=== PATIENT | female | born 1990 | race Caucasian/White ===

== ENCOUNTER 2019-04-21 05:37 | Inpatient (IN) | payer MEDICAID ==
[2019-04-21] MEDS: LACTATED RINGER'S 1,000 ML IV ×2 (06:20→07:30)
[2019-04-21] MEDS ORDERED: OXYTOCIN 30 UNITS/LR 500 ML IV (06:30)
[2019-04-21] MEDS ORDERED: MISOPROSTOL 200 MCG TAB PR ×2 (06:30→10:00)
[2019-04-21] MEDS ORDERED: CARBOPROST 250 MCG INJ IM ×2 (06:30→10:00)
[2019-04-21] MEDS ORDERED: METHYLERGONOVINE 0.2 MG INJ IM (06:30)
[2019-04-21 06:39] LABS: ADD MAN DIFF? NO
[2019-04-21 06:41] LABS: WHITE BLOOD COUNT 9.9 10^3/ul (4.8-10.8)
[2019-04-21 06:41] LABS: BASOPHILS % 0.3 % (0.0-2.0); EOSINOPHILS # 0.1 10^3/ul (0.0-0.5); HEMATOCRIT 37.1 % (37.0-47.0); HEMOGLOBIN 12.6 g/dl (12.0-16.0); LYMPHOCYTES # 2.1 10^3/ul (0.8-2.9); LYMPHOCYTES % 21.2 % (15.0-51.0); MEAN CORPUSCULAR HEMOGLOBIN 28.4 pg (29.0-33.0); MEAN CORPUSCULAR VOLUME 83.6 fl (82.0-101.0); MONOCYTE # 0.7 10^3/ul (0.3-0.9); MONOCYTES % 7.4 % (0.0-11.0); NEUTROPHIL # 6.9 10^3/ul (1.6-7.5); NEUTROPHILS % 69.1 % (39.0-77.0); PLATELET COUNT 190 10^3/UL (140-415); RED BLOOD COUNT 4.44 10^6/ul (4.20-5.40); RED CELL DISTRIBUTION WIDTH 13.6 % (11.5-14.5)
[2019-04-21] MEDS ORDERED: PHENYLephrine (100 MCG/ML) 10ML SYG (07:00)
[2019-04-21 07:07] LABS: INR 0.87; PROTIME 11.9 Sec (11.9-14.9); PT RATIO 0.9
[2019-04-21 07:08] LABS: PARTIAL THROMBOPLASTIN TIME 27.6 Sec (23.0-35.0)
[2019-04-21] MEDS ORDERED: morphine SULFATE/PF (10 MG/10 ML) INJ (07:53)
[2019-04-21] MEDS ORDERED: FENTAnyl 50 MCG/ML VIAL (07:54)
[2019-04-21] MEDS ORDERED: DEXAMETHASONE 4 MG/ML 1 ML INJ (08:01)
[2019-04-21] MEDS ORDERED: ONDANSETRON 4 MG INJ (08:01)
[2019-04-21 08:03] LABS: HEPATITIS B SURFACE ANTIGEN NEGATIVE (NEGATIVE)
[2019-04-21] MEDS ORDERED: NALOXONE (0.4 MG/ML) INJ IV (08:30)
[2019-04-21] MEDS ORDERED: ONDANSETRON 4 MG INJ IV (08:30)
[2019-04-21] MEDS ORDERED: ZOLPIDEM 5 MG TAB PO (08:30)
[2019-04-21] MEDS ORDERED: HYDROmorphONE 0.5 MG/0.5 ML SYG IV (08:30)
[2019-04-21] MEDS: CEFAZOLIN 2 GM/50 ML (PMX) 50 ML IVPB ×2 (09:22→17:51)
[2019-04-21] MEDS: DIPHENHYDRAMINE 50 MG INJ IV (09:44)
[2019-04-21] MEDS: OXYTOCIN 30 UNITS/LR 500 ML IV ×3 (09:47→17:52)
[2019-04-21] MEDS ORDERED: CEFAZOLIN 2 GM/50 ML (PMX) 50 ML IVPB (10:00)
[2019-04-21] MEDS ORDERED: NACL 0.9% 3 ML SYG IV (10:00)
[2019-04-21] MEDS ORDERED: OXYCODONE/ACETAMINOPHEN (5/325) TAB PO (10:00)
[2019-04-21] MEDS: METHYLERGONOVINE 0.2 MG INJ IM (11:07)
[2019-04-21] MEDS: HYDROmorphONE 0.5 MG/0.5 ML SYG IV (12:07)
[2019-04-21 12:11] LABS: ADD MAN DIFF? NO
[2019-04-21 12:27] LABS: BASOPHIL # 0.1 10^3/ul (0.0-0.1); BASOPHILS % 0.3 % (0.0-2.0); EOSINOPHILS % 0.1 % (0.0-7.0); HEMATOCRIT 40.1 % (37.0-47.0); HEMOGLOBIN 13.7 g/dl (12.0-16.0); LYMPHOCYTES # 1.3 10^3/ul (0.8-2.9); MEAN CORPUSCULAR HEMOGLOBIN 28.6 pg (29.0-33.0); MEAN CORPUSCULAR HGB CONC 34.2 g/dl (32.0-37.0); MEAN CORPUSCULAR VOLUME 83.7 fl (82.0-101.0); MEAN PLATELET VOLUME 11.8 fl (7.4-10.4); MONOCYTE # 0.3 10^3/ul (0.3-0.9); MONOCYTES % 1.8 % (0.0-11.0); NEUTROPHIL # 17.1 10^3/ul (1.6-7.5); PLATELET COUNT 200 10^3/UL (140-415); RED BLOOD COUNT 4.79 10^6/ul (4.20-5.40); RED CELL DISTRIBUTION WIDTH 13.2 % (11.5-14.5)
[2019-04-21] MEDS: KETOROLAC 30 MG INJ IV (16:03)
[2019-04-21 20:49] LABS: RAPID PLASMA REAGIN NONREACTIVE (NR)
[2019-04-21] MEDS: URSODIOL 300 MG CAP PO (21:39)
[2019-04-22] MEDS: CEFAZOLIN 2 GM/50 ML (PMX) 50 ML IVPB ×2 (02:13→10:16)
[2019-04-22] MEDS: KETOROLAC 30 MG INJ IV (04:05)
[2019-04-22] MEDS: OXYTOCIN 30 UNITS/LR 500 ML IV (05:33)
[2019-04-22] MEDS: OXYCODONE/ACETAMINOPHEN (5/325) TAB PO (08:34)
[2019-04-22] MEDS: URSODIOL 300 MG CAP PO ×2 (08:35→21:10)
[2019-04-22 09:44] LABS: ADD MAN DIFF? NO
[2019-04-22 09:57] LABS: WHITE BLOOD COUNT 12.7 10^3/ul (4.8-10.8)
[2019-04-22 09:57] LABS: BASOPHILS % 0.2 % (0.0-2.0); EOSINOPHILS # 0.1 10^3/ul (0.0-0.5); EOSINOPHILS % 0.7 % (0.0-7.0); HEMATOCRIT 31.3 % (37.0-47.0); HEMOGLOBIN 10.5 g/dl (12.0-16.0); LYMPHOCYTES # 2.2 10^3/ul (0.8-2.9); LYMPHOCYTES % 17.6 % (15.0-51.0); MEAN CORPUSCULAR HEMOGLOBIN 28.5 pg (29.0-33.0); MEAN CORPUSCULAR HGB CONC 33.5 g/dl (32.0-37.0); MEAN CORPUSCULAR VOLUME 84.8 fl (82.0-101.0); MEAN PLATELET VOLUME 11.9 fl (7.4-10.4); MONOCYTE # 0.8 10^3/ul (0.3-0.9); MONOCYTES % 6.6 % (0.0-11.0); NEUTROPHIL # 9.4 10^3/ul (1.6-7.5); NEUTROPHILS % 74.2 % (39.0-77.0); PLATELET COUNT 171 10^3/UL (140-415); RED BLOOD COUNT 3.69 10^6/ul (4.20-5.40); RED CELL DISTRIBUTION WIDTH 13.9 % (11.5-14.5)
[2019-04-22] MEDS: IBUPROFEN 600 MG TAB PO ×3 (12:25→23:57)
[2019-04-22] MEDS: DEXTROSE 5%-LR 1,000 ML IV (18:45)
[2019-04-22 19:09] LABS: ADD MAN DIFF? NO
[2019-04-22 19:12] LABS: BASOPHILS % 0.3 % (0.0-2.0); EOSINOPHILS # 0.1 10^3/ul (0.0-0.5); EOSINOPHILS % 0.7 % (0.0-7.0); HEMATOCRIT 29.9 % (37.0-47.0); HEMOGLOBIN 10.2 g/dl (12.0-16.0); LYMPHOCYTES # 1.8 10^3/ul (0.8-2.9); LYMPHOCYTES % 14.7 % (15.0-51.0); MEAN CORPUSCULAR HEMOGLOBIN 29.2 pg (29.0-33.0); MEAN CORPUSCULAR HGB CONC 34.1 g/dl (32.0-37.0); MEAN CORPUSCULAR VOLUME 85.7 fl (82.0-101.0); MEAN PLATELET VOLUME 11.6 fl (7.4-10.4); MONOCYTE # 0.7 10^3/ul (0.3-0.9); MONOCYTES % 5.6 % (0.0-11.0); NEUTROPHIL # 9.6 10^3/ul (1.6-7.5); NEUTROPHILS % 78.1 % (39.0-77.0); PLATELET COUNT 167 10^3/UL (140-415); RED BLOOD COUNT 3.49 10^6/ul (4.20-5.40)
[2019-04-22 19:12] LABS: WHITE BLOOD COUNT 12.3 10^3/ul (4.8-10.8)
[2019-04-22] MEDS: FERROUS SULFATE (EC) 325 MG TAB PO (21:10)
[2019-04-22] MEDS: LANOLIN HPA 1 PKT TOP (23:58)
[2019-04-23 00:52] LABS: ADD MAN DIFF? NO
[2019-04-23 00:54] LABS: BASOPHILS % 0.2 % (0.0-2.0); EOSINOPHILS # 0.1 10^3/ul (0.0-0.5); EOSINOPHILS % 0.4 % (0.0-7.0); HEMATOCRIT 30.6 % (37.0-47.0); HEMOGLOBIN 10.2 g/dl (12.0-16.0); LYMPHOCYTES # 1.8 10^3/ul (0.8-2.9); LYMPHOCYTES % 15.8 % (15.0-51.0); MEAN CORPUSCULAR HEMOGLOBIN 28.4 pg (29.0-33.0); MEAN CORPUSCULAR HGB CONC 33.3 g/dl (32.0-37.0); MEAN CORPUSCULAR VOLUME 85.2 fl (82.0-101.0); MEAN PLATELET VOLUME 11.7 fl (7.4-10.4); MONOCYTE # 0.7 10^3/ul (0.3-0.9); NEUTROPHIL # 8.7 10^3/ul (1.6-7.5); NEUTROPHILS % 77.2 % (39.0-77.0); PLATELET COUNT 177 10^3/UL (140-415); RED BLOOD COUNT 3.59 10^6/ul (4.20-5.40); RED CELL DISTRIBUTION WIDTH 14.2 % (11.5-14.5)
[2019-04-23 00:54] LABS: WHITE BLOOD COUNT 11.2 10^3/ul (4.8-10.8)
[2019-04-23] MEDS: DEXTROSE 5%-LR 1,000 ML IV ×2 (03:24→11:00)
[2019-04-23] MEDS: IBUPROFEN 600 MG TAB PO ×4 (05:50→23:42)
[2019-04-23 08:46] LABS: HEMATOCRIT 31.9 % (37.0-47.0); HEMOGLOBIN 10.6 g/dl (12.0-16.0)
[2019-04-23] MEDS: FERROUS SULFATE (EC) 325 MG TAB PO ×2 (09:07→20:30)
[2019-04-23] MEDS: URSODIOL 300 MG CAP PO ×2 (09:07→20:30)
[2019-04-24] MEDS: IBUPROFEN 600 MG TAB PO ×2 (05:46→11:52)
[2019-04-24] MEDS: FERROUS SULFATE (EC) 325 MG TAB PO (10:01)
[2019-04-24] MEDS: URSODIOL 300 MG CAP PO (10:01)
[2019-04-24] MEDS: DIPHTH/TET/ACEL PERTUSS (ADULT) 0.5 ML VIAL IM* (11:53)
== END 2019-04-24 16:20 | disposition home or self-care (01) | DRG 788 ==
LOC: L-D 05:37 → PP1 12:51
PROVIDERS: Obstetrics & Gynecology
PROC: 10D00Z1 Extraction of Products of Conception, Low, Open Approach (ICD-10-PCS; principal; 2019-04-21 07:30)
DX: O65.5 Obstructed labor due to abnormality of maternal pelvic organs (principal); O34.211 Maternal care for low transverse scar from previous cesarean delivery; O99.613 Diseases of the digestive system complicating pregnancy, third trimester; Z3A.37 37 weeks gestation of pregnancy; Z37.0 Single live birth
CPT/HCPCS: 85014; 85018; 85025; 85610; 85730; 86592; 86850; 86900; 86901; 87340; 90715; 99464